=== PATIENT | male | born 1960 | race African-American/Black ===

== ENCOUNTER 2017-01-01 08:58 | Emergency (ER) | payer OTHER, BC ==
[~2017-01-01] VITALS: Ht 185.4 cm; Wt 118.1 kg
[2017-01-01] MEDS ORDERED: MOTRIN800 MG PO (12:07)
[2017-01-01] MEDS ORDERED: FLEXERIL10 MG PO (12:07)
[2017-01-01 12:36] VITALS: BP 142/98
== END 2017-01-01 12:37 | disposition home or self-care (01) ==
LOC: EME 08:58
DX: S39.011A Strain of muscle, fascia and tendon of abdomen, initial encounter (principal); X50.0XXA Overexertion from strenuous movement or load, initial encounter; I10 Essential (primary) hypertension
CPT/HCPCS: 76870; 76882; 99281; 99284